=== PATIENT | male | born 1990 | race Caucasian/White ===

== ENCOUNTER 2016-06-24 19:36 | Emergency (ER) | payer OTHER ==
[~2016-06-24] VITALS: Ht 172.7 cm; Wt 155.6 kg
[2016-06-24 20:31] VITALS: BP 119/92
--- NOTE | 2016-06-24 22:05 | NUR ---
Patient ambulated to bed 06.
--- NOTE | 2016-06-24 22:13 | NUR ---
Dr. Hayden evaluating patient at bedside.
[2016-06-24] MEDS ORDERED: NACL 0.9% 1,000 ML IV ONE ×2 (22:23→23:45)
[2016-06-24] MEDS ORDERED: KETOROLAC 30 MG/ML VIAL IVP ONE (22:25)
[2016-06-24] MEDS ORDERED: ONDANSETRON 4 MG/2 ML VIAL IVP ONE (22:25)
--- NOTE | 2016-06-24 22:25 | NUR ---
25Y/M PATIENT PRESENTS TO ED WITH C/O N/V/D X 4 DAYS . PT STATES HAVING N/V/D X 4 DAYS, FEVER ON AND OFF; SKIN IS PINK/WARM/DRY; AAOX4 WITH EVEN AND STEADY GAIT; LUNGS CLEAR BL; HR EVEN AND REGULAR; PT DENIES ANY FEVER, CP, SOB, OR COUGH AT THIS TIME; PATIENT STATES PAIN OF 0/10 AT THIS TIME; VSS; PATIENT POSITIONED FOR COMFORT; HOB ELEVATED; BEDRAILS UP X2; BED DOWN. ER MD MADE AWARE OF PT STATUS.
[2016-06-25] MEDS ORDERED: ONDANSETRON 4 MG/2 ML VIAL IVP ONE (00:20)
[2016-06-25] MEDS ORDERED: DICYCLOMINE 20 MG/2 ML VIAL IM ONE (00:20)
[2016-06-25] MEDS ORDERED: METOCLOPRAMIDE 10 MG/2 ML INJ VIAL IVP ONE (00:50)
[2016-06-25] MEDS ORDERED: diphenhydrAMINE 50 MG/ML VIAL IVP ONE (00:50)
--- NOTE | 2016-06-25 01:15 | NUR ---
PT.WENT TO CT
--- NOTE | 2016-06-25 01:45 | NUR ---
PT. BACK FROM CT
[2016-06-25 02:44] VITALS: BP 145/84
--- NOTE | 2016-06-25 02:44 | NUR ---
Patient discharged with v/s stable. Written and verbal after care instructions given and explained. Patient alert, oriented and verbalized understanding of instructions. Ambulatory with steady gait. All questions addressed prior to discharge. ID band removed. Patient advised to follow up with PMD. Rx of REGLAN 5 MG, BENTYL 20 MG, ZOFRAN ODT 4 MG given. Patient educated on indication of medication including possible reaction and side effects. Opportunity to ask questions provided and answered.
[2016-06-29] MEDS ORDERED: PROTONIX40 MG PO (08:15)
[2016-06-29] MEDS ORDERED: NORCO 325 MG-51 TAB PO (08:15)
[2016-06-29] MEDS ORDERED: CARAFATE1 GM PO (08:15)
[2016-06-29] MEDS ORDERED: LEVAQUIN750 MG PO (14:38)
[2016-06-29] MEDS ORDERED: ZOFRAN4 M1 PO (14:38)
== END 2016-06-25 02:44 | disposition home or self-care (01) ==
LOC: MED 19:36
DX: R11.2 Nausea with vomiting, unspecified (principal); R19.7 Diarrhea, unspecified; R05 Cough; R61 Generalized hyperhidrosis
CPT/HCPCS: 36415; 74176; 80053; 81001; 81002; 83690; 85025; 87086; 96361; 96372; 96374; 96375; 96376; 99285; J0500; J1200; J1885; J2405; J2765; J7030

== ENCOUNTER 2016-06-27 07:05 | Inpatient (IN) | payer OTHER ==
[~2016-06-27] VITALS: Ht 172.7 cm; Wt 154.7 kg
[2016-06-27 07:22] VITALS: BP 139/90
--- NOTE | 2016-06-27 07:28 | NUR ---
PT AMBULATED TO BED 4 AT THIS TIME.
--- NOTE | 2016-06-27 07:30 | NUR ---
25/M BIB MOTHER C/O EPIGASTRIC PAIN W/ NAUSEA/VOMITING X 5 DAYS. PT STATES PT CAME TO ER 3 DAYS AGO AND D/C W/ MEDS BUT STILL HAS ABDOMINAL PAIN ,N/V/D. PT STATES N/V X 4 EPISOES & DIARRHEA X 3 EPISODES THIS MORNING; SKIN IS PINK/WARM/DRY; AAOX4 WITH EVEN AND STEADY GAIT; LUNGS CLEAR BL; HR EVEN AND REGULAR; PT DENIES ANY FEVER, CP, SOB, OR COUGH AT THIS TIME; PATIENT STATES PAIN OF 2/10 AT THIS TIME; PATIENT POSITIONED FOR COMFORT; HOB ELEVATED; BEDRAILS UP X2; BED DOWN. ER MD MADE AWARE OF PT STATUS.
[2016-06-27] MEDS ORDERED: NACL 0.9% 1,000 ML IV SCH (07:36)
[2016-06-27] MEDS ORDERED: ALUMINUM HYD/MAG/SIMETHICONE 30 ML, BELLADONNA/PHENOBARBITAL 10 ML, LIDOCAINE VISCOUS 2... PO ONE ×3 (07:40)
[2016-06-27] MEDS ORDERED: LIDOCAINE VISCOUS 2% 20 ML UDC ONE (07:50)
[2016-06-27] MEDS ORDERED: BELLADONNA/PHENOBARBITAL 5 ML ORASYR ONE (07:50)
--- NOTE | 2016-06-27 07:52 | NUR ---
US AT BEDSIDE
--- NOTE | 2016-06-27 07:53 | NUR ---
CALLED PHARMACY FOR MAALOX/MYALNTA
[2016-06-27 07:56] LABS: BASOPHILS # (AUTO) 0.1 K/uL (0.00-0.22); BASOPHILS % (AUTO) 1.5 % (0.0-2.0); EOSINOPHILS # (AUTO) 0.1 K/uL (0-0.4); EOSINOPHILS % (AUTO) 1.4 % (0.0-4.0); HEMATOCRIT 44.1 % (36-52); HEMOGLOBIN 14.5 g/dL (12.0-18.0); LYMPHOCYTES # (AUTO) 1.4 K/uL (2.0-11.5); LYMPHOCYTES % (AUTO) 17.3 % (20.5-51.1); MEAN CORPUSCULAR HEMOGLOBIN 30 pg (27-31); MEAN CORPUSCULAR HGB CONC 33 g/dL (33-37); MEAN CORPUSCULAR VOLUME 90 fL (80-94); MONOCYTES # (AUTO) 1.2 K/uL (0.8-1.0); MONOCYTES % (AUTO) 14.8 % (1.7-9.3); NEUTROPHILS # (AUTO) 5.1 K/uL (1.8-7.7); PLATELET COUNT (AUTO) 290 K/uL (140-450); RED BLOOD CELL COUNT(AUTO) 4.89 MIL/uL (4.20-6.10); RED CELL DISTRIBUTION WIDTH 13.4 % (11.6-13.7); WHITE BLOOD COUNT (AUTO) 7.9 K/uL (4.8-10.8)
[2016-06-27 08:08] LABS: APPEARANCE,URINE HAZY (CLEAR); BILIRUBIN,URINE 2+ (NEGATIVE); BLOOD, URINE TRACE-I (NEGATIVE); COLOR,URINE YELLOW (YELLOW); LEUKOCYTE ESTERASE ,URINE TRACE (NEGATIVE); NITRITE, URINE NEGATIVE (NEGATIVE); PH,URINE 6.5 (5.0-9.0); PROTEIN,URINE 1+ (NEGATIVE); UGLUCOSE NEGATIVE (NEGATIVE)
[2016-06-27 08:11] LABS: ALBUMIN 3.9 g/dL (3.4-5.0); ANION GAP 14.2 (8-16); CALCIUM 8.5 mg/dL (8.5-10.1); CARBON DIOXIDE 23.7 mmol/L (21-32); POTASSIUM 2.9 mmol/L (3.5-5.1); TOTAL BILIRUBIN 0.7 mg/dL (0.0-1.0); TOTAL PROTEIN, SERUM 7.3 g/dL (6.4-8.2)
[2016-06-27] MEDS ORDERED: POTASSIUM CHL 10 MEQ/D5-1/2NS 1,000 ML IV ONE (08:15)
[2016-06-27 08:19] LABS: BACTERIA,URINE 1+ /HPF (None Seen); ICTOTEST POSITIVE (NEGATIVE); RBC,URINE 0-3 /HPF (0-5); SQUAMOUS EPITHELIAL CELL,UR 0-4 /LPF (0-3 (FEW))
[2016-06-27 08:20] LABS: MUCUS,URINE 1+ /LPF (None Seen)
[2016-06-27] MEDS ORDERED: HYDROmorphone 1 MG/ML AMP IVP ONE (09:05)
[2016-06-27] MEDS: NACL 0.9% 1,000 ML IV SCH ×2 (09:40→19:40)
[2016-06-27] MEDS ORDERED: ACETAMINOPHEN 325 MG TAB PO PRN (09:40)
--- NOTE | 2016-06-27 10:31 | NUR ---
CALLED REORT TO ELPIDIO RUIZ
--- NOTE | 2016-06-27 10:32 | NUR ---
Patient will be admitted to care of DR JEFF. Admited to [facility] . Will go to rOOM [address]. Belongings list completed. Report to ELPIDIO RUIZ.
[2016-06-27] MEDS: KCL 20 MEQ/WATER INJ PREMIX 200 ML IV SCH ×2 (11:00→13:58)
--- NOTE | 2016-06-27 11:29 | NUR ---
PT ON UNIT. AAOX4. NO S/S OF ACUTE DISTRESS. PT DENIES PAIN. IV SITE PATENT AND INTACT. PT ORIENTED TO ROOM. CALL LIGHT WITHIN REACH. SAFETY MEASURES ENSURED. WILL CONTINUE TO MONITOR.
[2016-06-27 11:40] VITALS: BP 113/59
[2016-06-27] MEDS ORDERED: INFLUENZA VIRUS VACCINE QUAD 0.5 ML SYR IMVAC PRN (12:15)
[2016-06-27] MEDS ORDERED: PNEUMOCOCCAL VACCINE 23 MCG/0.5 ML VIAL IMVAC SCH (12:15)
[2016-06-27] MEDS: SUCRALFATE 1 GM TAB PO SCH ×3 (13:26→20:36)
--- NOTE | 2016-06-27 14:15 | NUR ---
PAGED DR. JEFF REGARDING POTASSIUM WITH LIDOCAINE.
[2016-06-27] MEDS ORDERED: POTASSIUM CHLORIDE 40 MEQ, LIDOCAINE 1% 25 MG in NACL 0.9% 250 ML IV SCH (15:00)
--- NOTE | 2016-06-27 15:34 | NUR ---
PT RESTING IN BED. NO S/S OF ACUTE DISTRESS. PT DENIES PAIN. CALL LIGHT WITHIN REACH.. SAFETY MEASURES ENSURED. WILL CONTINUE TO MONITOR.
[2016-06-27 16:00] VITALS: BP 118/56
--- NOTE | 2016-06-27 19:18 | NUR ---
ENDORSED PLAN OF CARE TO NIGHT RN. PT REMAINS IN STABLE CONDITION.
[2016-06-27 20:00] VITALS: BP 122/80
[2016-06-27] MEDS ORDERED: POTASSIUM CHLORIDE 10 MEQ TABER PO SCH (21:35)
--- NOTE | 2016-06-27 21:40 | NUR ---
PT WITH MULTIPLE WATERY STOOL, SPECIMEN SENT TO LAB FOR C-DIFF AND O & P, TRANSFERRED TO ROOM 118.
[2016-06-27] MEDS: ZOLPIDEM 10 MG TAB PO PRN (21:53)
--- NOTE | 2016-06-27 22:10 | NUR ---
POTASSIUM OF 3.2 AFTER K-RIDER, PAGED DR SCHWARTZ WITH NEW ORDERS, 40 MEQ K-DUR PO X1 DOSE AND SLEEPING PILL GIVEN PRN ORDERED.
--- NOTE | 2016-06-27 23:00 | NUR ---
IV LINE POSITIONAL, KEEPS ON BEEPING, NEW IV LINE STARTED TO LEFT HAND BY ETL CONSULTANT LINDA WITH GOOD BLOOD RETURN, IVF RESUMED, MONITORED CLOSELY.
[2016-06-28] VITALS: BP 136/79
[2016-06-28] MEDS: MORPHINE SULFATE 2 MG/ML SYR IVP PRN ×2 (02:49→12:53)
[2016-06-28] MEDS: ONDANSETRON 4 MG/2 ML VIAL IVP PRN ×2 (02:54→06:30)
--- NOTE | 2016-06-28 03:00 | NUR ---
PT AMBULATED TO AND STILL HAVING WATERY STOOL, AWAITING C-DIFF RESULT, COMPLAINING OF ABDOMINAL PAIN, MEDICATED WITH MORPHINE IVP, NAUSEATED AND VOMITED 100ML BILE COLORED VOMITUS, MEDICATED WITH ZOFRAN PRN, RELIEF FROM N/V NOTED, WARM BLANKET PROVIDED, PT WENT BACK TO SLEEP, MONITORED CLOSELY.
--- NOTE | 2016-06-28 03:50 | NUR ---
PT SLEEPING, NO SIGNS OF DISTRESS, VITAL SIGNS STABLE, IVF INFUSING WELL, MONITORED CLOSELY.
[2016-06-28 04:00] VITALS: BP 143/78
[2016-06-28] MEDS: NACL 0.9% 1,000 ML IV SCH (04:34)
[2016-06-28] MEDS: HYDROcodone/APAP 5/325 MG 1 TAB TAB PO PRN ×2 (05:48→20:36)
--- NOTE | 2016-06-28 05:50 | NUR ---
COMPLAINING OF ABDOMINAL PAIN, MEDICATED WITH NORCO PO, WILL MEDICATE WITH ZOFRAN PRN WHEN DUE, MONITORED CLOSELY.
--- NOTE | 2016-06-28 06:33 | NUR ---
SLIGHT RELIEF FROM PAIN BUT STILL NAUSEATED, NO VOMITING NOTED, ZOFRAN GIVEN PRN, IVF INFUSING WELL, MONITORED CLOSELY.
[2016-06-28 06:34] LABS: BASOPHILS # (AUTO) 0.1 K/uL (0.00-0.22); BASOPHILS % (AUTO) 1.5 % (0.0-2.0); EOSINOPHILS % (AUTO) 0.6 % (0.0-4.0); HEMATOCRIT 42.9 % (36-52); HEMOGLOBIN 14.2 g/dL (12.0-18.0); LYMPHOCYTES # (AUTO) 1.6 K/uL (2.0-11.5); LYMPHOCYTES % (AUTO) 22.2 % (20.5-51.1); MEAN CORPUSCULAR HEMOGLOBIN 30 pg (27-31); MEAN CORPUSCULAR HGB CONC 33 g/dL (33-37); MEAN CORPUSCULAR VOLUME 89 fL (80-94); MONOCYTES # (AUTO) 0.8 K/uL (0.8-1.0); MONOCYTES % (AUTO) 11.2 % (1.7-9.3); NEUTROPHILS # (AUTO) 4.8 K/uL (1.8-7.7); NEUTROPHILS % (AUTO) 64.5 % (42.2-75.2); PLATELET COUNT (AUTO) 283 K/uL (140-450); RED CELL DISTRIBUTION WIDTH 13.3 % (11.6-13.7); WHITE BLOOD COUNT (AUTO) 7.3 K/uL (4.8-10.8)
[2016-06-28 06:45] LABS: ALBUMIN 3.6 g/dL (3.4-5.0); ANION GAP 15.2 (8-16); CALCIUM 8.2 mg/dL (8.5-10.1); CARBON DIOXIDE 22.4 mmol/L (21-32); CREATININE 0.9 mg/dL (0.6-1.3); MAGNESIUM 2.1 mg/dL (1.8-2.4); POTASSIUM 3.6 mmol/L (3.5-5.1); TOTAL BILIRUBIN 0.6 mg/dL (0.0-1.0); TOTAL PROTEIN, SERUM 6.8 g/dL (6.4-8.2)
--- NOTE | 2016-06-28 07:15 | NUR ---
PT SLEEPING, NO SIGNS OF DISTRESS, REPORT GIVEN TO ELPIDIO RUIZ FOR CONTINUITY OF CARE.
--- NOTE | 2016-06-28 07:17 | NUR ---
RECEIVED REPORT FROM LESLIE RN. PT SLEEPING IN BED. AAOX4. NO S/S OF ACUTE DISTRESS. IV SITE PATENT AND INTACT. MOTHER AT BEDSIDE. CALL LIGHT WITHIN REACH. SAFETY MEASURES ENSURED. WILL CONTINUE TO MONITOR.
[2016-06-28] MEDS: DEXT 5% /NACL 0.9% 1,000 ML IV SCH ×3 (07:30→20:36)
[2016-06-28] MEDS ORDERED: LOPERAMIDE 2 MG CAP PO PRN (07:55)
--- NOTE | 2016-06-28 08:03 | NUR ---
PATIENT HAS BEEN SCREENED AND CATEGORIZED HIGH NUTRITION RISK. PATIENT WILL BE SEEN WITHIN 1-2 DAYS OF ADMISSION. 06/28/16-06/29/[address]
[2016-06-28 08:14] VITALS: BP 115/75
[2016-06-28] MEDS: SUCRALFATE 1 GM TAB PO SCH ×4 (08:36→20:36)
[2016-06-28] MEDS: PANTOPRAZOLE 40 MG INJ VIAL IVP SCH (08:37)
[2016-06-28] MEDS: NICOTINE TRANSD SYS 14 MG/24 HR PATCH TD SCH (08:50)
[2016-06-28] MEDS: ENOXAPARIN 40 MG/0.4 ML SYR SUBQ SCH (08:52)
--- NOTE | 2016-06-28 10:11 | NUR ---
PT SLEEPING IN BED. NO S/S OF ACUTE DISTRESS. PT TOLERATED AM MEDS WELL. CALL LIGHT WITHIN REACH. SAFETY MEASURES ENSURED. WILL CONTINUE TO MONITOR.
--- NOTE | 2016-06-28 12:06 | NUR ---
PT RESTING IN BED. NO S/S OF ACUTE DISTRESS. PT STATES PAIN 10/17. WILL MEDICATE ORDERED. CALL LIGHT WITHIN REACH. FAMILY AT BEDSIDE. WILL CONTINUE TO MONITOR.
[2016-06-28 12:15] LABS: AMPHETAMINE, URINE NEG. ng/ml (NEG <=1000); BARBITURATE, URINE POS. ng/ml (NEG <=200); BENZODIAZEPINE, URINE NEG. ng/mL (NEG <=200); CANNABINOID, URINE POS. ng/mL (NEG <=50); COCAINE, URINE NEG. ng/mL (NEG <=300); OPIATE, URINE POS. ng/mL (NEG <=2000); PHENCYCLIDINE SCREEN,URINE NEG. ng/mL (NEG <=25)
--- NOTE | 2016-06-28 12:18 | NUR ---
PT STATES HE WANTS TO TAKE A SHOWER. PT WILL WAIT FOR MORPHINE UNTIL AFTER SHOWER.
--- NOTE | 2016-06-28 13:19 | NUR ---
CM NOTE INITIAL REVIEW SENT TO [facility] FAX# [phone] PH# CHRISTOPHE [phone]
--- NOTE | 2016-06-28 14:44 | NUR ---
PT SLEEPING IN BED. NO S/S OF ACUTE DISTRESS. PT DENIES PAIN. CALL LIGHT WITHIN REACH. SAFETY MEASURES ENSURED. WILL CONTINUE TO MONITOR.
--- NOTE | 2016-06-28 14:45 | NUR ---
REQUEST FOR RECORDS SENT TO [facility]. Addendum: 06/28/16 at 1446 by Veto Parks RN WRONG PATIENT
[2016-06-28 16:00] VITALS: BP 112/62
--- NOTE | 2016-06-28 16:06 | NUR ---
PT SLEEPING IN BED. NO S/S OF ACUTE DISTRESS. CALL LIGHT WITHIN REACH. SAFETY MEASURES ENSURED. WILL CONTINUE TO MONITOR.
--- NOTE | 2016-06-28 19:24 | NUR ---
ENDORSED PLAN OF CARE TO NIGHT RN. PT REMAINS IN STABLE CONDITION.
--- NOTE | 2016-06-28 19:25 | NUR ---
RECEIVED PT IN STABLE CONDITION FROM ELPIDIO RUIZ. NO SOB, NO SIGNS OF DISTRESS. PT IS AOX4, AMBULATORY. SKIN IS INTACT. PT WITH IV TO LT HAND 22G PATENT, ASYMPTOMATIC, INTACT, IVF RUNNING. PT C/O ABD PAIN, WILL MEDICATE PER MD ORDER. FAMILY AT BEDSIDE. PLAN OF CARE DISCUSSED WITH PT. SAFETY MEASURES IN PLACE. CALL LIGHT WITHIN REACH. WILL CONTINUE TO MONITOR.
--- NOTE | 2016-06-28 20:36 | NUR ---
PT TOLERATED DUE MEDS WELL, MEDICATED PT FOR PAIN PER MD ORDER. NO SOB, NO SIGNS OF DISTRESS. IV SITE ASYMPTOMATIC, INTACT, PATENT, IVF RUNNING. PLAN OF CARE DISCUSSED WITH PT. SAFETY MEASURES IN PLACE. CALL LIGHT WITHIN REACH. WILL CONTINUE TO MONITOR.
--- NOTE | 2016-06-28 22:31 | NUR ---
PT RESTING IN BED. NO SOB, NO SIGNS OF DISTRESS. IV SITE ASYMPTOMATIC, INTACT, PATENT, IVF RUNNING. PT DENIES PAIN AT THIS TIME. PLAN OF CARE DISCUSSED WITH PT. SAFETY MEASURES IN PLACE. CALL LIGHT WITHIN REACH. WILL CONTINUE TO MONITOR.
[2016-06-28] MEDS: ZOLPIDEM 10 MG TAB PO PRN (23:44)
--- NOTE | 2016-06-28 23:44 | NUR ---
VS STABLE ON ROOM AIR. NO SOB, NO SIGNS OF DISTRESS. IV SITE ASYMPTOMATIC, INTACT, PATENT, IVF RUNNING. PT DENIES PAIN AT THIS TIME. PT C/O NOT BEING ABLE TO SLEEP, PT REQUESTED AMBIEN, MEDICATED PT PER MD ORDER. PT TOLERATED WELL. PLAN OF CARE DISCUSSED WITH PT. SAFETY MEASURES IN PLACE. CALL LIGHT WITHIN REACH. WILL CONTINUE TO MONITOR.
[2016-06-29] VITALS: BP 127/63
--- NOTE | 2016-06-29 02:30 | NUR ---
PT ASLEEP IN BED. NO SOB, NO SIGNS OF DISTRESS. IV SITE ASYMPTOMATIC, INTACT, PATENT, IVF RUNNING. SAFETY MEASURES IN PLACE. CALL LIGHT WITHIN REACH. WILL CONTINUE TO MONITOR.
[2016-06-29] MEDS: DEXT 5% /NACL 0.9% 1,000 ML IV SCH (06:57)
--- NOTE | 2016-06-29 07:26 | NUR ---
ENDORSED PT IN STABLE CONDITION TO ELPIDIO ENRIQUE. ALL NEEDS HAVE BEEN MET AT THIS TIME.
--- NOTE | 2016-06-29 07:27 | NUR ---
RECEIVED SBAR REPORT AT PT BEDSIDE. PT RESTING IN BED. DENIES DISCOMFORT. PATIENT SEEN BY. DR. JEFF, WILL START ORAL TOLERANCE TODAY. PATIENT AAOX4. IV SITE PATENT AND INTACT. CALL LIGHT WITHIN REACH.
[2016-06-29 08:00] VITALS: BP 116/58
[2016-06-29] MEDS ORDERED: ACET-2869 PO (08:15)
[2016-06-29] MEDS ORDERED: SUCR1TAB35 PO (08:15)
[2016-06-29] MEDS ORDERED: PANT40EC PO (08:15)
[2016-06-29] MEDS: NICOTINE TRANSD SYS 14 MG/24 HR PATCH TD SCH (09:00)
--- NOTE | 2016-06-29 09:00 | NUR ---
PT TOLERATING PO LIQUIDS. NO S/S OF ACUTE DISTRESS. IV SITE PATENT AND INTACT.
[2016-06-29 09:07] LABS: BASOPHILS # (AUTO) 0.1 K/uL (0.00-0.22); BASOPHILS % (AUTO) 2.3 % (0.0-2.0); EOSINOPHILS # (AUTO) 0.1 K/uL (0-0.4); EOSINOPHILS % (AUTO) 1.7 % (0.0-4.0); HEMATOCRIT 40.8 % (36-52); HEMOGLOBIN 13.7 g/dL (12.0-18.0); LYMPHOCYTES # (AUTO) 1.5 K/uL (2.0-11.5); LYMPHOCYTES % (AUTO) 26.9 % (20.5-51.1); MEAN CORPUSCULAR HEMOGLOBIN 31 pg (27-31); MEAN CORPUSCULAR HGB CONC 34 g/dL (33-37); MEAN CORPUSCULAR VOLUME 91 fL (80-94); MONOCYTES # (AUTO) 0.6 K/uL (0.8-1.0); MONOCYTES % (AUTO) 11.5 % (1.7-9.3); NEUTROPHILS # (AUTO) 3.3 K/uL (1.8-7.7); NEUTROPHILS % (AUTO) 57.6 % (42.2-75.2); PLATELET COUNT (AUTO) 284 K/uL (140-450); RED BLOOD CELL COUNT(AUTO) 4.49 MIL/uL (4.20-6.10); WHITE BLOOD COUNT (AUTO) 5.6 K/uL (4.8-10.8)
[2016-06-29] MEDS: SUCRALFATE 1 GM TAB PO SCH ×2 (09:12→12:25)
[2016-06-29] MEDS: PANTOPRAZOLE 40 MG INJ VIAL IVP SCH (09:13)
[2016-06-29] MEDS: ENOXAPARIN 40 MG/0.4 ML SYR SUBQ SCH (09:19)
[2016-06-29 09:37] LABS: ANION GAP 12.8 (8-16); CALCIUM 7.9 mg/dL (8.5-10.1); CARBON DIOXIDE 24.5 mmol/L (21-32); CREATININE 0.8 mg/dL (0.6-1.3); POTASSIUM 3.3 mmol/L (3.5-5.1)
--- NOTE | 2016-06-29 10:00 | NUR ---
RESULTS OF LABS CALLED TO DR. JEFF. PATIENT TO BE MONITORED FOR ORAL TOLERANCE, WILL CONTINUE TO MONITOR.
[2016-06-29] MEDS ORDERED: POTASSIUM CHLORIDE 10 MEQ TABER PO SCH (10:13)
--- NOTE | 2016-06-29 12:00 | NUR ---
PATIENT HAD FULL LIQUID SNACKS AND TOLERATED WELL. WILL ADVANCE DIET ORDERED.
--- NOTE | 2016-06-29 12:21 | NUR ---
GERY ESPINOZA SPOKE WITH GREY SAEED OF [facility] TO GIVE HER VERBAL CLINICAL UPDATE AND TO INFORM HER OF DISCHARGE ORDER FOR PATIENT. DISCHARGE SUMMARY SENT TO [facility] FAX# [phone] [facility] SAEED [phone]
--- NOTE | 2016-06-29 14:00 | NUR ---
PT TOLERATED LUNCH. NO S/S OF ACUTE DISTRESS. DR. JEFF NOTIFIED, OKAY TO SEND PATIENT HOME WITH MEDICATIONS AND FOLLOW UP.
[2016-06-29] MEDS ORDERED: LEVO750T2 PO (14:38)
[2016-06-29] MEDS ORDERED: ONDA4TAB PO (14:38)
--- NOTE | 2016-06-29 15:10 | NUR ---
PATIENT IV REMOVED, CANULA INTACT. PT DENIES DISCOMFORT. DISCHARGE INSTRUCTIONS GIVEN, VERBALIZED UNDERSTANDING. FOLLOW UP TEACHING GIVEN. PATIENT GIRLFRIEND AT BEDSIDE TO TAKE PATIENT HOME. PT AMBULATORY. AAOX4. WALKED PATIENT TO FRONT LOBBY.
== END 2016-06-29 15:10 | disposition home or self-care (01) | DRG 282 ==
LOC: MED 07:05 → MTU 10:24
PROVIDERS: ADMIT Hospitalist; ATTEND Hospitalist
DX: K85.20 Alcohol induced acute pancreatitis without necrosis or infection (principal); C85.90 Non-Hodgkin lymphoma, unspecified, unspecified site; E87.5 Hyperkalemia; F12.10 Cannabis abuse, uncomplicated; K52.9 Noninfective gastroenteritis and colitis, unspecified; N39.0 Urinary tract infection, site not specified; F19.10 Other psychoactive substance abuse, uncomplicated; E87.6 Hypokalemia; E66.01 Morbid (severe) obesity due to excess calories; F17.210 Nicotine dependence, cigarettes, uncomplicated; Z68.43 Body mass index [BMI] 50.0-59.9, adult; Z92.21 Personal history of antineoplastic chemotherapy; Z98.890 Other specified postprocedural states
CPT/HCPCS: 36415; 76705; 80048; 80053; 80305; 81001; 82150; 83690; 83735; 84132; 85025; 87070; 87081; 87086; 87177; 90658; 90732; 93005; 96361; 96374; 99285; C9113; J0696; J1170; J1650; J2001; J2270; J2405; J3480; J7030; J7042; J7060; Q0092

== ENCOUNTER 2022-07-27 23:01 | Emergency (ER) | payer OTHER ==
[~2022-07-27] VITALS: Ht 172.7 cm; Wt 158.8 kg
[~2022-07-27 23:01] MED LIST: HYDR-5122 PO; LEVO750T2 PO; ONDA4TAB PO; PANT40EC PO; SUCR1TAB35 PO
[2022-07-27 23:08] VITALS: BP 164/91
--- NOTE | 2022-07-28 00:59 | NUR ---
pt to bed
[2022-07-28] MEDS ORDERED: ACETAMINOPHEN EXTRA STRENGTH 500 MG TAB PO ONE (01:10)
[2022-07-28] MEDS ORDERED: IBUPROFEN 600 MG TAB PO ONE (01:10)
--- NOTE | 2022-07-28 01:19 | NUR ---
X-Ray at bedside.
[2022-07-28 02:03] LABS: BASOPHILS # (AUTO) 0.1 K/uL (0.00-0.22); BASOPHILS % (AUTO) 0.8 % (0.0-2.0); EOSINOPHILS % (AUTO) 0.2 % (0.0-4.0); HEMATOCRIT 45.9 % (36-52); HEMOGLOBIN 15.3 g/dL (12.0-18.0); LYMPHOCYTES # (AUTO) 0.7 K/uL (2.0-11.5); LYMPHOCYTES % (AUTO) 8.7 % (20.5-51.1); MEAN CORPUSCULAR HEMOGLOBIN 30 pg (27-31); MEAN CORPUSCULAR HGB CONC 33 g/dL (33-37); MEAN CORPUSCULAR VOLUME 89.9 fL (80-94); MONOCYTES # (AUTO) 0.7 K/uL (0.8-1.0); MONOCYTES % (AUTO) 9.6 % (1.7-9.3); NEUTROPHILS # (AUTO) 6.3 K/uL (1.8-7.7); NEUTROPHILS % (AUTO) 80.7 % (42.2-75.2); PLATELET COUNT (AUTO) 287 K/uL (140-450); RED CELL DISTRIBUTION WIDTH 13.6 % (11.6-13.7); WHITE BLOOD COUNT (AUTO) 7.7 K/uL (4.8-10.8)
[2022-07-28 02:18] LABS: ALBUMIN 3.8 g/dL (3.4-5.0); ANION GAP 12.4 (8-16); CARBON DIOXIDE 25.7 mmol/L (21-32); POTASSIUM 4.1 mmol/L (3.5-5.1); TOTAL BILIRUBIN 0.2 mg/dL (0.0-1.0)
[2022-07-28] MEDS ORDERED: BENZ-300 PO ×2 (02:40→03:15)
[2022-07-28] MEDS ORDERED: BENZ200C4 PO ×2 (02:40→03:15)
[2022-07-28] MEDS ORDERED: IBUP-2213 PO ×2 (02:40→03:15)
[2022-07-28] MEDS ORDERED: AMOX1TAB8 PO ×2 (02:40→03:15)
[2022-07-28 02:53] VITALS: BP 132/60
--- NOTE | 2022-07-28 02:54 | NUR ---
Patient discharged with v/s stable. Written and verbal after care instructions given and explained. Patient alert, oriented and verbalized understanding of instructions. Ambulatory with steady gait. All questions addressed prior to discharge. ID band removed. Patient advised to follow up with PMD. Rx of AMOXICILLIN, BENZOCAINE, IBUPROFEN, BENZONATE given. Patient educated on indication of medication including possible reaction and side effects. Opportunity to ask questions provided and answered.
== END 2022-07-28 02:54 | disposition home or self-care (01) ==
LOC: MED 23:01
DX: R05.9 Cough, unspecified (principal); J02.9 Acute pharyngitis, unspecified; R50.9 Fever, unspecified; Z20.822 Contact with and (suspected) exposure to COVID-19; R00.0 Tachycardia, unspecified; R11.0 Nausea; R42 Dizziness and giddiness; F17.210 Nicotine dependence, cigarettes, uncomplicated; Z71.6 Tobacco abuse counseling; Z79.899 Other long term (current) drug therapy; Z79.1 Long term (current) use of non-steroidal anti-inflammatories (NSAID); Z79.2 Long term (current) use of antibiotics
CPT/HCPCS: 36415; 71045; 80053; 83880; 84484; 85025; 93005; 99285